=== PATIENT | male | born 1965 | race Caucasian/White ===

== ENCOUNTER → 2017-07-05 | Outpatient (CLI) | payer OTHER ==
--- NOTE | 2017-07-05 14:52 | MR ---
EXAMINATION TYPE: MR brain wo/w con DATE OF EXAM: 07/05/2017 COMPARISON: NONE HISTORY: Isaac ext weakness, seizures TECHNIQUE: Multiplanar, multisequence images of the brain and brainstem is performed without and with IV contras t, utilizing 7.0 mL intravenous Gadavist . FINDINGS: Diffusion weighted images demonstrate no evidence of a recent infarct or other diffusion ab normality. There is no extra-axial fluid collection in this patient with a history of subdural hygro ma. There is extensive confluent areas of T1 hypointense and T2/FLAIR hyperintense white matter change wi thout restricted diffusion or enhancement and without mass effect throughout the frontal, parietal, o ccipital, and to a lesser degree temporal subcortical and periventricular white matter. The ventricul ar system and cisternal spaces are mildly prominent but symmetric likely on the basis of age-related cerebral atrophy. Cerebral aqueduct appears patent on the axial images. The temporal horns of the lat eral ventricles do not appear rounded there is mild generalized thinning of the corpus callosum. The brain volume is age appropriate. Midline structures demonstrate normal morphology. The craniocervical junction appears within normal limits. Post contrast images demonstrate no abnormal enhancement. Focus of enhancement on coronal im age 21 and axial image 24 within the right frontal region is extra-axial related to vascular structur e within the subarachnoid space. The dural venous sinuses appear patent. The visualized sinuses are c lear and the globes are intact. IMPRESSION: Extensive periventricular and subcortical white matter changes. Differential is broad but could relat e to cerebral autosomal dominant arteriopathy with subcortical infarcts and leukoencephalopathy (CADA NOLAN), demyelinating process, progressive multifocal leukoencephalopathy in an immunocompromised patie nt, toxic leukoencephalopathy or other vasculitis. No abnormal enhancement. No restricted diffusion t o suggest acute infarction.
== END | disposition home or self-care (01) ==
LOC: RADMRIMAIN 13:20
PROVIDERS: ATTEND Nurse Practitioner Acute Care
DX: R90.82 White matter disease, unspecified (principal); G40.909 Epilepsy, unspecified, not intractable, without status epilepticus
CPT/HCPCS: 70553; A9581